=== PATIENT | male | born 1970 | race Caucasian/White ===

== ENCOUNTER 2022-11-25 10:00 | Emergency (ER) | payer BC, SELFPAY ==
[2022-11-25] VITALS (10 sets, daily range): BP systolic 164–206; BP diastolic 105–110; PULSE 103–114; RESP 18–32; TEMP 36.8; O2SAT 96–99; BMI 36.3
--- NOTE | 2022-11-25 10:26 | DI.RAD.S_ITS ---
PROCEDURE: XR CHEST 1V INDICATIONS: weakness TECHNIQUE: One view of the chest was acquired. COMPARISON: None. FINDINGS: Surgical changes and devices: None. Lungs and pleura: Lungs are clear. No pleural effusions or pneumothorax. Mediastinum: Mediastinal contours appear normal. Heart size is normal. Bones and chest wall: No suspicious bony lesions. Overlying soft tissues appear unremarkable. IMPRESSION: Portable chest within normal limits for age. Dictated by: Magda Couch M.D. on 11/25/2022 at 11:26 Approved by: Magda Couch M.D. on 11/25/2022 at 11:26
--- NOTE | 2022-11-25 10:26 | DI.CT.S_ITS ---
PROCEDURE: CT HEAD/BRAIN WO CON INDICATIONS: BURGER/AGITATION TECHNIQUE: Noncontrast 4.5 mm thick angled axial sections acquired from the foramen magnum to the vertex, with coronal and sagittal reformats. For radiation dose reduction, the following was used: automated exposure control, adjustment of mA and/or kV according to patient size. COMPARISON: None. FINDINGS: Image quality: Excellent. CSF spaces: Basal cisterns are patent. No extra-axial fluid collections. Ventricles are normal in size and shape. Brain: No midline shift. No intracranial masses or hemorrhage. Jorge-white matter interface is normal. Skull and face: Calvarium and visualized facial bones are intact, without suspicious lesions. Sinuses: Visualized sinuses and mastoids are clear. IMPRESSION: No CT evidence of acute intracranial process. Dictated by: Magda Couch M.D. on 11/25/2022 at 11:18 Approved by: Magda Couch M.D. on 11/25/2022 at 11:19
--- NOTE | 2022-11-25 10:28 | ED_ITS ---
HPI - General Adult General Chief complaint: Dizziness Stated complaint: Nausea/Dizzy, High HR Time Seen by Provider: 11/25/22 10:03 History of Present Illness HPI narrative: 52-year-old male with no reported past medical history presents by EMS from work for nausea, shakiness, lightheadedness, and HTN. Patient states that he woke up feeling rather unwell, but went to work as usual. While he was at work he states that he could feel his blood pressure elevating and began to feel very nauseous and even more dizzy, which he describes as lightheaded, so he called 911. On arrival patient is agitated, shaking, frequently rubbing his eyes. He states that his eyes have a stinging, itching, burning sensation, however denies chemical exposure. He states he feels like I drank too much beer. Denies alcohol use today. States he maybe drinks 1-2x per week Related Data Previous Rx's Medication Instructions Recorded amlodipine 5 mg tablet 5 mg PO DAILY #30 tabs 11/25/22 Allergies Allergy/AdvReac Type Severity Reaction Status Date / Time No Known Drug Allergies Allergy Verified 11/25/22 10:26 Review of Systems Review of Systems Narrative: CONSTITUTIONAL- Denies: fever, chills, fatigue HEENT- Denies: sore throat, nosebleed, vision changes RESPIRATORY- Denies: shortness of breath, cough, wheezing CARDIAC- Denies: chest pain, edema, orthopnea GI-reports: Nausea Denies: abdominal pain, vomiting, constipation, diarrhea - Denies: frequency, dysuria, hematuria, flank pain MSK- Denies: extremity pain, extremity swelling, joint pain, joint swelling SKIN- Denies: rash, itching, burn, swelling NEUROLOGICAL-reports: Lightheaded, dizziness Denies: headache, numbness, weakness PSYCHIATRIC- Denies: anxiety, depression, suicidal ideation, homicidal ideation Patient History Social History Smoking Status: Never smoker Exam Initial Vital Signs Initial Vital Signs: Vital Signs Temperature 98.2 F 11/25/22 10:05 Pulse Rate 105 H 11/25/22 10:05 Respiratory Rate 24 11/25/22 10:05 Blood Pressure 204/107 H 11/25/22 10:05 Pulse Oximetry 96 11/25/22 10:05 Oxygen Delivery Method Room Air 11/25/22 10:05 Const: Awake, alert, shaking, anxious Eyes: PERRL, EOMI, conjunctiva normal, periorbital skin irritated, patient repeatedly rubbing at eyes ENT: Atraumatic, dentition normal, mucous membranes moist Cardiac: tachycardia, regular rhythm RESP: unlabored, clear bilaterally, no wheezing GI: Atraumatic, soft, nontender, nondistended, no rebound, no guarding MSK: Atraumatic, full range of motion, pulses equal Skin: Warm, Dry, intact, no rashes Neuro: AO x3, CN II-XII grossly intact, moves all extremities Psych: anxious affect, mood normal, not suicidal, not homicidal Course Course Course Narrative: Anxious but nontoxic-appearing gentleman with nausea and dizziness. No known exposure to chemicals or dust to explain why patient repeatedly wiping at face and eyes. Conjunctiva normal. Will give dose of benadryl in case this has allergic component. Orders Ordered: Discontinued Medications Diphenhydramine HCl (Diphenhydramine 50 Mg/Ml Vial) 50 mg IV NOW ONE Stop: 11/25/22 10:27 Last Admin: 11/25/22 10:37 Dose: 50 mg Documented By: PARAMJIT Sodium Chloride (Normal Saline 0.9%) 1,000 mls @ 1,000 mls/hr IV BOLUS ONE Stop: 11/25/22 11:25 Last Infusion: 11/25/22 11:40 Dose: 0 mls/hr Documented By: Admin: 11/25/22 10:37 Dose: 1,000 mls/hr Documented By: SPF Reevaluation(s) Reevaluation #1: Labs and imaging are unremarkable, no explanation for patient's symptoms. He is still slightly agitated, bouncing his leg and still stating that he feels ?tipsy?. He is ambulatory in the Emergency hallways without assistance, no ataxia. is now at bedside. I explained to both patient and that I do not know the cause of his symptoms. I recommended PCP follow up. Patient expresses frustration that he is not been able to establish with a PCP in several years because each time he gets a new PCP they end up leaving the clinic and he asked to wait several months for a new appointment. Patient expressed concerned about his high blood pressure. We will give patient a low dose of amlodipine to take while he waits for a PCP appointment. ED return precautions discussed at bedside. Patient expressed understanding of the plan and is in agreement at this time. All questions answered at the time of discharge. Vital Signs Vital signs: Vital Signs - 8 hr 11/25/22 10:05 11/25/22 10:06 11/25/22 10:30 Temperature 98.2 F Pulse Rate 105 H 108 H Respiratory Rate 24 Blood Pressure 204/107 H 206/110 H Pulse Oximetry 96 97 Oxygen Delivery Method Room Air 11/25/22 10:30 11/25/22 11:06 11/25/22 11:07 Temperature Pulse Rate 111 H 114 H Respiratory Rate 21 Blood Pressure 190/105 H Pulse Oximetry 98 99 Oxygen Delivery Method 11/25/22 11:07 11/25/22 11:30 11/25/22 11:30 Temperature Pulse Rate 113 H 114 H Respiratory Rate 32 H Blood Pressure 197/110 H Pulse Oximetry 98 97 Oxygen Delivery Method Room Air 11/25/22 12:00 11/25/22 12:00 11/25/22 12:13 Temperature Pulse Rate 108 H 103 H Respiratory Rate 18 18 Blood Pressure 188/109 H Pulse Oximetry 98 Oxygen Delivery Method Room Air Medical Decision Making Lab Data 11/25/22 10:15 11/25/22 10:15 Labs: Lab Results 11/25/22 11/25/22 11/25/22 Range/Units 10:15 10:15 10:15 WBC 9.8 (4.5-11.0) X10^3/uL RBC 5.51 (4.5-5.9) X10^6/uL Hgb 16.5 (13.5-17.5) g/dL Hct 47.7 (41-53) % MCV 86.6 (80-100) fL MCH 30.0 (26-34) PG MCHC 34.6 (30-36) % RDW 12.9 (11.6-14.8) % Plt Count 211 (150-400) X10^3/uL Neut % (Auto) 77.0 H (50-75) % Lymph % (Auto) 15.5 L (25-40) % [place] % (Auto) 5.7 (3-14) % Eos % (Auto) 1.1 L (2-4) % Baso % (Auto) 0.7 (0-2) % Neut # (Auto) 7500 H (3181-3654) /uL Lymph # (Auto) 1500 (5565-7499) /uL [place] # (Auto) 600 (0-900) /uL Eos # (Auto) 100 (0-450) /uL Baso # (Auto) 100 (0-100) /uL Sodium 138 (137-145) mmol/L Potassium 3.4 (3.4-5.1) mmol/L Chloride 104 (98-107) mmol/L Carbon Dioxide 23 (22-32) mmol/L BUN 20 (9-20) mg/dL Creatinine 0.96 (0.66-1.25) mg/dL Estimated GFR > 60 (>60) mL/min BUN/Creatinine Ratio 20.8 (6-22) Glucose 162 H (70-100) mg/dL Calcium 9.8 (8.4-10.2) mg/dL Total Bilirubin 1.6 H (0.2-1.3) mg/dL AST 32 (17-59) IU/L ALT 49 (<50) IU/L Alkaline Phosphatase 83 (38-126) U/L Troponin I < 0.012 (0.01-0.034) ng/mL Total Protein 7.9 (6.3-8.2) g/dL Albumin 4.7 (3.5-5.0) g/dL Globulin 3.2 (1.7-4.1) g/dL Albumin/Globulin Ratio 1.5 (1.0-2.8) Lipase 31 (23-300) U/L U Opiates 300ng/mL cut (Negative) Ur Oxycodone Screen (Negative) Urine Methadone Screen (Negative) Ur Barbiturates Screen (Negative) U Tricyclic Antidepress (Negative) Ur Phencyclidine Scrn (Negative) Ur Amphetamines Screen (Negative) U Methamphetamines Scrn (Negative) Ur MDMA Scrn (Ecstasy) (Negative) U Benzodiazepines Scrn (Negative) Urine Cocaine Screen (Negative) U Marijuana (THC) Screen (Negative) 11/25/22 Range/Units 10:45 WBC (4.5-11.0) X10^3/uL RBC (4.5-5.9) X10^6/uL Hgb (13.5-17.5) g/dL Hct (41-53) % MCV (80-100) fL MCH (26-34) PG MCHC (30-36) % RDW (11.6-14.8) % Plt Count (150-400) X10^3/uL Neut % (Auto) (50-75) % Lymph % (Auto) (25-40) % [place] % (Auto) (3-14) % Eos % (Auto) (2-4) % Baso % (Auto) (0-2) % Neut # (Auto) (5736-6345) /uL Lymph # (Auto) (8860-6140) /uL [place] # (Auto) (0-900) /uL Eos # (Auto) (0-450) /uL Baso # (Auto) (0-100) /uL Sodium (137-145) mmol/L Potassium (3.4-5.1) mmol/L Chloride (98-107) mmol/L Carbon Dioxide (22-32) mmol/L BUN (9-20) mg/dL Creatinine (0.66-1.25) mg/dL Estimated GFR (>60) mL/min BUN/Creatinine Ratio (6-22) Glucose (70-100) mg/dL Calcium (8.4-10.2) mg/dL Total Bilirubin (0.2-1.3) mg/dL AST (17-59) IU/L ALT (<50) IU/L Alkaline Phosphatase (38-126) U/L Troponin I (0.01-0.034) ng/mL Total Protein (6.3-8.2) g/dL Albumin (3.5-5.0) g/dL Globulin (1.7-4.1) g/dL Albumin/Globulin Ratio (1.0-2.8) Lipase (23-300) U/L U Opiates 300ng/mL cut Negative (Negative) Ur Oxycodone Screen Negative (Negative) Urine Methadone Screen Negative (Negative) Ur Barbiturates Screen Negative (Negative) U Tricyclic Antidepress Negative (Negative) Ur Phencyclidine Scrn Negative (Negative) Ur Amphetamines Screen Negative (Negative) U Methamphetamines Scrn Negative (Negative) Ur MDMA Scrn (Ecstasy) Negative (Negative) U Benzodiazepines Scrn Negative (Negative) Urine Cocaine Screen Negative (Negative) U Marijuana (THC) Screen Negative (Negative) Discharge Plan Departure Patient Disposition: Home Clinical Impression: Dizziness, Hypertension Instructions: DI for Dizziness-Nonvertigo Prescriptions: New amlodipine 5 mg tablet 5 mg PO DAILY Qty: 30 0RF Stand Alone Forms: Patient Portal/API
[2022-11-25] MEDS: diphenhydrAMINE 50 MG/ML VIAL IV (10:37)
[2022-11-25] MEDS: SODIUM CHLORIDE 0.9% 1,000 ML 1000 ML IV (10:37)
--- NOTE | 2022-11-25 10:48 | PC.NURSE ---
Patient asking am I going to be Ok?, and whats happening to me?. Patient ensured he is in a safe area. Pt's friend and spouse at bedside. urine specimen collected stand by in room.
[2022-11-25 10:50] LABS: Add Manual Diff / Slide Review NO; Basophils Absolute Auto 100 /uL (0-100); Basophils Percent Auto 0.7 % (0-2); Eosinophils Absolute Auto 100 /uL (0-450); Eosinophils Percent Auto 1.1 % (2-4); Hematocrit 47.7 % (41-53); Hemoglobin 16.5 g/dL (13.5-17.5); Lipase 31 U/L (23-300); Lymphocytes Absolute Auto 1500 /uL (1100-4500); Lymphocytes Percent Auto 15.5 % (25-40); Mean Corpuscular HGB Conc 34.6 % (30-36); Mean Corpuscular Volume 86.6 fL (80-100); Monocytes Absolute Auto 600 /uL (0-900); Monocytes Percent Auto 5.7 % (3-14); Neutrophils Absolute Auto 7500 /uL (1500-7000); Platelet Count 211 X10^3/uL (150-400); Red Blood Cell Count 5.51 X10^6/uL (4.5-5.9); Red Cell Distribution Width 12.9 % (11.6-14.8); White Blood Cell Count 9.8 X10^3/uL (4.5-11.0)
[2022-11-25 11:02] LABS: UR Morphine/Opiate cutoff 300 Negative (Negative); Ur Creatinine Normal (Normal); Ur Specific Gravity Normal (Normal); Urine Amphetamines Negative (Negative); Urine Barbiturates Negative (Negative); Urine Benzodiazepines Negative (Negative); Urine Cocaine Negative (Negative); Urine MDMA Negative (Negative); Urine Methadone Negative (Negative); Urine Methamphetamines Negative (Negative); Urine Oxycodone Negative (Negative); Urine Phencyclidine Negative (Negative); Urine Tetrahydrocannabinol Negative (Negative); Urine Tricyclic Antidepressant Negative (Negative); Urine pH Normal (Normal)
--- NOTE | 2022-11-25 11:11 | PC.NURSE ---
Pt denies SOB, chest pain. He is anxious in bed, wiping his face with a cold, wet washcloth. Spouse at bedside.
[2022-11-25 11:50] LABS: Alanine Aminotransferase 49 IU/L (<50); Albumin 4.7 g/dL (3.5-5.0); Albumin Globulin Ratio 1.5 (1.0-2.8); Alkaline Phosphatase 83 U/L (38-126); Aspartate Aminotransferase 32 IU/L (17-59); BUN Creatinine Ratio 20.8 (6-22); Bilirubin Total 1.6 mg/dL (0.2-1.3); Blood Urea Nitrogen 20 mg/dL (9-20); Calcium 9.8 mg/dL (8.4-10.2); Carbon Dioxide 23 mmol/L (22-32); Chloride 104 mmol/L (98-107); Estimated Glomerular Filt Rate > 60 mL/min (>60); Globulin 3.2 g/dL (1.7-4.1); Glucose 162 mg/dL (70-100); HEMOLYSIS < 15 (0-50); Potassium 3.4 mmol/L (3.4-5.1); Sodium 138 mmol/L (137-145); Total Protein 7.9 g/dL (6.3-8.2)
[2022-11-25 12:01] LABS: Troponin I < 0.012 ng/mL (0.01-0.034)
--- NOTE | 2022-11-25 12:10 | PC.NURSE ---
Pt ambulated to bathroom stand by assist. He denies SOB or chest pain but still says he feels like I've had a few beers - like I'm tipsy. Last alcohol intake was a couple beers 2 days ago. Pt states he doesnt not drink very often, usually every couple of weeks he has a few beers. Pt able to ambulate to visual acuity testing. 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
== END 2022-11-25 12:50 | disposition home or self-care (01) ==
PROVIDERS: Emergency Provider Emergency Medicine
DX: R42 Dizziness and giddiness (principal); I10 Essential (primary) hypertension
CPT/HCPCS: 70450; 71045; 80053; 80305; 83690; 84484; 85025; 93005; 96361; 96374; 99284; J1200